=== PATIENT | male | born 1965 | race Native Hawaiian/Other Pacific Islander ===

== ENCOUNTER 2020-04-28 11:22 | Emergency (ER) | payer SELFPAY ==
--- NOTE | 2020-04-28 15:38 | Event Note ---
ED Screening Note ED Screening Note: bowel incontinence for 1 month lower back pain weakness in both legs has had MRI and is currently seeing a spine surgeon was recommended to have fusion This initial assessment/diagnostic orders/clinical plan/treatment(s) is/are subject to change based on patients health status, clinical progression and re- assessment by fellow clinical providers in the ED. Further treatment and workup at subsequent clinical providers discretion. Patient/guardian urged not to elope from the ED as their condition may be serious if not clinically assessed and managed. Initial orders include: CT lumbar spine
--- NOTE | 2020-04-28 16:28 | Cat Scan Report ---
CT LUMBAR SPINE: 04/28/2020 INDICATION / CLINICAL INFORMATION: low back pain, bowel incontinence, weakness BLE. COMPARISON: None available. FINDINGS: CT images of the lumbar spine were obtained. Images are evaluated in the axial, coronal, and sagittal planes. Is no evidence of acute abnormality. Degenerative changes are present throughout the lumbar spine. Straightening of normal lumbar lordosis is present with the patient positioned for this exam. LEVEL BY LEVEL ANALYSIS: L5-S1: There is a slight retrolisthesis associated with facet degenerative changes. Right-sided pars defect is present, with a chronic appearance. Mild bilateral foraminal narrowing is present. L4-5: Moderate symmetric diffuse disc bulging and mild facet degenerative changes. L3-4: Moderate diffuse disc bulging associated with moderate central canal narrowing. There is no puja dence of lateralization. L2-3: Mild symmetric diffuse disc bulging. L1-2: Prominent diffuse disc bulging with partial calcification of the bulging disc contour. Severe c entral canal stenosis is present. PARASPINAL STRUCTURES: Unremarkable. IMPRESSION: No acute abnormality. Multilevel degenerative changes as detailed above. Severe stenosis at L1-2. All CT scans at this location are performed using dose reduction to ALARA by means of automated expos ure control. Signer Name: Giovanni Eagle MD Signed: 04/28/2020 4:24 PM Workstation Name: [id number]
== END 2020-04-28 21:00 | disposition left against medical advice (07) ==
LOC: ED 11:22
DX: R30.0 Dysuria (principal); Z53.21 Procedure and treatment not carried out due to patient leaving prior to being seen by health care provider
CPT/HCPCS: 72131